=== PATIENT | male | born 1955 | race Caucasian/White ===

== ENCOUNTER 2016-12-12 01:48 | Inpatient (IN) ==
[2016-12-12 03:03] LABS: MANUAL DIFF NEEDED? NO
[2016-12-12 03:04] LABS: URINE CULTURE NEEDED? NO; URINE MICRO REVIEW NEEDED? NO; URINE SOURCE CLEAN CATCH
[2016-12-12 03:05] LABS: BASO% 0.5 % (0.0-0.8); EOS# 0.22 X1000 (0.0-0.7); EOS% 2.2 % (0.0-10.0); HEMATOCRIT 42.5 % (42.0-52.0); HEMOGLOBIN 14.3 g/dL (14.0-18.0); IMM GRAN# 0.04 X1000 (0.0-0.04); IMM GRAN% 0.4 % (0.0-0.5); LYMPH# 1.34 X1000 (1.2-3.4); LYMPH% 13.2 % (20.5-51.1); MCHC 33.6 g/dL (33-37); MCV 89.3 FL (81-99); MONO# 0.94 X1000 (0.11-0.59); MONO% 9.3 % (1.7-9.3); MPV 11.6 FL (7.4-10.4); NEUT% 74.4 % (42.2-75.2); PLT 318 X1000 (130-400); RBC 4.76 XMIL (4.7-6.1)
[2016-12-12 03:08] LABS: BILIRUBIN URINE NEGATIVE (NEGATIVE); BLOOD URINE NEGATIVE (NEGATIVE); COLOR YELLOW; GLUCOSE URINE NEGATIVE (NEGATIVE); LEUKOCYTES URINE NEGATIVE (NEGATIVE); NITRITE URINE NEGATIVE (NEGATIVE); PROTEIN URINE TRACE mg/dL (NEGATIVE); SP GRAVITY URINE 1.028; TURBIDITY URINE CLEAR (CLEAR); UROBILINOGEN URINE NORMAL (NORMAL)
[2016-12-12 03:09] LABS: UR EPITHELIAL CELLS <10 /HPF (<10); URINE BACTERIA NEGATIVE /HPF; URINE RBC <10 /HPF (<10); URINE WBC <10 /HPF (<10)
[2016-12-12 03:27] LABS: AGAP 15; ALBUMIN 4.1 g/dL (3.5-5.0); ALKALINE PHOSPHATASE 77 U/L (32-122); AMYLASE 34 U/L (20-200); BUN 19 mg/dL (8-22); CALCIUM 9.3 mg/dL (8.8-10.2); CHLORIDE 101 mmol/L (98-107); COSMO 286; GOT 25 U/L (10-34); GPT 24 U/L (10-44); POTASSIUM 4.2 mmol/L (3.5-5.1); SODIUM 141 mmol/L (136-145); TCO2 25 mmol/L (25-35); TOTAL BILIRUBIN 0.59 mg/dL (0.20-1.00); TOTAL PROTEIN 8.1 g/dL (6.3-8.3)
[2016-12-12] MEDS ORDERED: NS 1,000 ML IV SCH (05:20)
[2016-12-12] MEDS ORDERED: ZOFRAN IV ONE (05:21)
--- NOTE | 2016-12-12 05:24 | PROVIDER DOCUMENTATION ---
This chart was entered by Rick Earl Scribe, acting as scribe for Dirk Patel MD. HPI-Abdominal Pain/GI Problem - General Chief Complaint: Abdominal Pain Stated Complaint: ABD PAIN, VOMITING Time Seen by Provider: 12/12/16 02:27 Source: patient Allergies/Adverse Reactions: Patient Allergies Allergy/AdvReac Type Severity Reaction Status Date / Time No Known Allergies Allergy Verified 12/12/16 02:27 Home Medications: Home Medication List Medication Instructions Recorded Confirmed Last Taken Type Albuterol Sulfate [Proair Hfa] 2 puff INH PRN PRN 12/12/16 12/12/16 12/11/16 History Bisoprolol [Zebeta] 10 mg PO DAILY 12/12/16 12/12/16 12/11/16 History Cetirizine HCl [Zyrtec] 10 mg PO DAILY 12/12/16 12/12/16 12/11/16 History Fluticasone Propionate 2 spray KIARRA DAILY 12/12/16 12/12/16 12/11/16 History Gabapentin 100 mg PO DAILY 12/12/16 12/12/16 12/11/16 History Meloxicam 15 mg PO Q4-8H PRN PRN 12/12/16 12/12/16 12/11/16 History Montelukast [Singulair] 10 mg PO DAILY 12/12/16 12/12/16 12/11/16 History Omeprazole [Omeprazole] 20 mg PO DAILY 12/12/16 12/12/16 12/11/16 History SIMVAstatin [Zocor] 40 mg PO QHS 12/12/16 12/12/16 12/11/16 History - History of Present Illness-ABD Nature of Presenting Problems: Pt is a 61 yom who presents to ER with CC of 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 Pt reports that he has not felt good x4 days and vomited last night and had 2 episodes of diarrhea. Pt describes pain as a burning sensation in his stomach. Abdominal Pain Onset Location: reports: other (superumbilical tenderness) Pain Radiation: reports: no radiation Quality of Pain: reports: burning Severity in ED: reports: mild, moderate Onset/Duration: reports: 1-3 hours ago Timing: reports: intermittent Activities at Onset: reports: sleep Associated Symptoms: reports: diarrhea, nausea, vomiting. denies: anxiety, arm pain, back/neck pain, chest pain, constipation, cough, diaphoresis, dizziness, EENT symptoms, fatigue, fever/chills, genitourinary problems, headaches, heartburn, joint pain, loss of appetite, malaise, muscle aches, sinus congestion /drainage, rash, seizure, shortness of breath, sensory/motor loss, pain with inspiration, swelling/mass in abdomen, syncope, weakness, trouble walking Last BM: last night Dark Stools Present?: reports: none noticed Rectal Bleeding: reports: none # of Diarrhea Episodes: 2 Rectal Pain: reports: none Emesis Description: reports: none Review of Systems - Adult - REVIEW OF SYSTEMS - ADULT Constitutional: denies: chills, fever, fatique, night sweats, weight gain, weight loss Eyes: reports: no symptoms reported Ears, Nose, Mouth & Throat: reports: no symptoms reported Cardiovascular: reports: no symptoms reported Respiratory: reports: no symptoms reported Gastrointestinal: reports: abdominal pain, diarrhea, nausea, vomiting. denies: hematemesis, constipation, difficulty swallowing, frequent heartburn, poor appetite, rectal bleeding Genitourinary: denies: dysuria, discharge, frequency, flank pain, frequent UTI's , hematuria, hesitency, incontinence, urinary retention, urgency Musculoskeletal: reports: no symptoms reported Integumentary: reports: no symptoms reported Neurological: reports: no symptoms reported Psychiatric: reports: no symptoms reported Endocrine: reports: no symptoms reported Hematologic/Lymphatic: reports: no symptoms reported Allergic/Immunologic: reports: no symptoms reported All Other Systems: Reviewed and Negative Past History - Adult - PAST MEDICAL HISTORY-ADULT Review of Records: reports: Nursing Assessment Review, Medications Reviewed - IMMUNIZATION STATUS Childhood Immunizations: See Nurse Assessment Flu Vaccine: See Nurse Assessment Physical Exam-General - PHYSICAL EXAM-ADULT Initial Vital Signs Reviewed: Yes - CONSTITUTIONAL General Appearance: appears well, alert, mild distress, obese. negative: no apparent distress - HEAD, EARS, NOSE, MOUTH & THROAT HENMT: normocephalic/atraumatic, moist mucous membranes, normal ENT inspection, TMs normal, pharynx normal. negative: pharyngeal erythema, tonsillar exudate, TM abnormal, TM obscurred by cerumen, frontal tenderness, maxillary tenderness - NECK Neck: non-tender, full range of motion, supple, normal inspection. negative: C- spine tenderness, limited range of motion, lymphadenopathy - RESPIRATORY Respiratory: chest non-tender, lungs clear, normal breath sounds, no pleuratic chest pain, no respiratory distress, no accessory muscle use. negative: wheezing - CARDIOVASCULAR Cardiovascular: normal peripheral pulses, regular rate, rhythm. negative: bradycardia, tachycardia, irregularly irregular - GASTROINTESTINAL (ABDOMEN) Abdominal Exam: soft, no organomegaly, no pulsatile mass, abnormal bowel sounds (markedly diminshed), tenderness (superumbilical). negative: normal bowel sounds, non tender - MUSCULOSKELETAL Back Exam: normal inspection, no CVA tenderness, no vertebral tenderness. negative: CVA tenderness, decreased range of motion, ecchymosis, muscle spasm, swelling, vertebral tenderness Extremity: normal range of motion, non-tender, normal gait, normal inspection, no pedal edema, no calf tenderness, normal capillary refill. negative: deformity, erythema, inflammation, pedal edema, swelling, tenderness - SKIN Integumentary: normal color, normal turgor, warm/dry. negative: abrasion(s), diaphoresis, ecchymosis, erythema, laceration(s), swelling, tenderness, warm - NEUROLOGIC Neurologic: surface boss II-XII nml as tested, grossly normal, no motor/sensory deficits . negative: facial droop, focal weakness, motor weakness, sensory deficit - PSYCHIATRIC Psych/Mental Status: normal mood/affect, normal thought content, normal thought process, oriented x 3 Progress - PLAN OF CARE/RESULTS Progress/Plan/Lab Results: Vital Signs - 8 hr 12/12/16 01:53 Temperature 97.6 F Pulse Rate 76 Respiratory Rate 18 Blood Pressure 125/80 O2 Sat by Pulse Oximetry 99 Result Diagrams: 12/12/16 02:10 12/12/16 02:10 - CT/MRI 1 MRI Study: Abdomen, Pelvis (Early sbo) Departure - Departure Time of Disposition Decision: 05:23 DIAGNOSIS: Small bowel obstruction Disposition: ADMITTED INPATIENT 09 Certified Medical Emergency: Emergent Condition: Good Referrals and Follow-Ups: Dougie Tucker MD [Primary Care Provider] - This chart was documented by the indicated scribe, (Rick Earl Scribe) and accurately reflects the services I performed and decisions made by me, Dirk Patel MD, as attested by the provider's signature.
--- NOTE | 2016-12-12 06:54 | HISTORY AND PHYSICAL ---
PRIMARY CARE PHYSICIAN: Dr. Dougie Tucker. CHIEF COMPLAINT: Abdominal pain. HISTORY OF PRESENTING ILLNESS: This is a 61-year-old male with a history of hypertension who had presented to the emergency department with a 1-day history of having abdominal pain. He described the pain as sharp and stabbing, and was not subsiding. He had associated symptoms of nausea and vomiting. The patient states these symptoms were worsening. Subsequently, he had come to the emergency department. In the ER, he was evaluated and due to his presenting symptoms, it was thought that he would need hospitalization for further management. The patient had imaging done which did show the possibility of an early small bowel obstruction. At the time of my examination, he had, however, denied any headache, fever, chills, chest pain, shortness of breath, hemoptysis, melena, or weight changes. PAST MEDICAL HISTORY: Includes hypertension. PAST SURGICAL HISTORY: Hernia repair, right ankle fusion. ALLERGIES: No known drug allergies. CURRENT MEDICATIONS: As listed in the MAR. SOCIAL HISTORY: He denies any history of smoking, alcohol, or illicit drug use. FAMILY HISTORY: No history of coronary artery disease. REVIEW OF SYSTEMS: Twelve point review of systems as listed as in the HPI. Other systems negative. PHYSICAL EXAMINATION: GENERAL: Cooperative, friendly male. He is resting more comfortably now. VITAL SIGNS: Temperature 97.6 degrees, pulse 76, respirations 18, blood pressure 125/80, he is saturating 99%. HEENT: Atraumatic, normocephalic. Extraocular movements intact. PERRLA. NECK: No masses. CHEST: Clear to auscultation. CARDIOVASCULAR: Regular rate and rhythm. ABDOMEN: Soft. Diffuse tenderness. EXTREMITIES: No edema. NEUROLOGIC: He is awake, alert, oriented x3. : No bladder distention. SKIN: Warm. LABORATORIES AND STUDIES: WBCs 10.12, hemoglobin 14.3, hematocrit 42.5, platelets 318,000. Sodium 141, potassium 4.2, chloride 101, CO2 is 25, BUN is 19, creatinine is 1.1, glucose is 141. ASSESSMENT: A 61-year-old male with a history of hypertension who had presented to the emergency department with a 1-day history of having abdominal pain. He had imaging done which did show a small bowel obstruction. He will need hospitalization for further management. 1. Suspected small-bowel obstruction. 2. Hypertension. PLAN: 1. We will admit patient to the medical floor. 2. Keep patient NPO, give him IV fluids, antiemetics, and adequate pain control. 3. We will consult his senior analyst developer. 4. We will monitor blood pressure closely. 5. We will put patient on DVT prophylaxis with SCDs. 6. We will continue to follow and reassess. cc: MD Dougie Rodgers MD
[2016-12-12] MEDS ORDERED: MORPHINE IV PRN (07:32)
[2016-12-12] MEDS ORDERED: ZOFRAN IV PRN (07:32)
[2016-12-12] MEDS: NS 1,000 ML IV SCH ×3 (08:02→23:45)
--- NOTE | 2016-12-12 11:31 | Diag Imaging Result Document ---
PROCEDURE NAME: CT ABD/PELVIS W/ IV CONT ONLY - 12/12/2016 CT ABDOMEN PELVIS WITH IV CONTRAST ONLY: TECHNIQUE: Exam performed with intravenous contrast only per request of the referring provider. A dose reduction protocol was used. No comparison exam. FINDINGS: The visualized lung bases appear clear. There is mild retrocrural adenopathy. There are nonspecific small retroperitoneal lymph nodes. There are calcified granulomas in the liver and spleen from old granulomatous disease. There are no other substantial abnormalities of the liver, spleen, adrenal glands, or pancreas identified. There are no calcified gallstones or pericholecystic inflammation identified. The bilateral kidneys enhance homogeneously. There is mild cortical scarring at the right kidney. There is no hydronephrosis. There are lumbar spine degenerative changes noted. The stomach is distended with retained fluid. There is retained fluid in small bowel, some of which appears to have mildly thickened [place]. There is mild distention of proximal small bowel. There is no discrete small-bowel obstructing lesion identified. There is a small fat-containing umbilical hernia but there is no bowel-containing hernia seen. The appendix is unremarkable. There is no abscess identified. There is no free air. There is a small amount of free fluid in the pelvis. IMPRESSION: 1. Distended stomach with retained fluid. Retained fluid in small bowel. Mild distention of proximal small bowel. These findings may relate to gastroenteritis. Early small-bowel obstruction is not excluded, but there is no discrete obstructing lesion identified. 2. Unremarkable appendix. 3. Small amount of free fluid in pelvis. No free air. No abscess. 4. Mild retrocrural adenopathy A Scale Computing physician provided preliminary results at 5:02 a.m. on 12/12/2016.
[2016-12-12] MEDS: ZEBETA PO SCH (11:38)
[2016-12-12] MEDS ORDERED: BLISTEX MEDICATED BERRY LIP BALM TOP PRN (11:39)
[2016-12-12] MEDS: PROTONIX IV SCH ×2 (11:49→23:00)
[2016-12-12] MEDS: SODIUM CHLORIDE 0.9% INJ SCH ×2 (11:49→21:28)
[2016-12-12] MEDS: FLONASE NAS SCH (11:49)
--- NOTE | 2016-12-12 11:58 | PROGRESS NOTE ---
DATE: 12/12/2016 SUBJECTIVE: The patient has not had a bowel movement since Tuesday. This is Tuesday. He had diarrhea then. Was put in earlier today by the hospitalist for small bowel obstruction. He says he is feeling a little bit better right now. OBJECTIVE: Vital Signs: Blood pressure of 121/81, respirations 20, pulse 73, temperature 98.4 degrees Fahrenheit. HEENT: Normocephalic. EOMs intact. PERRLA. Throat clear. Lungs: Clear to auscultation and percussion without rhonchi, rales, or wheezes. Heart: Regular rate and rhythm without murmurs, gallops, or friction rubs. Abdomen: Somewhat distended with decreased bowel sounds. Neurological: Examination intact grossly. Laboratory Data: White count is 10,120, hemoglobin 14.3. Urinalysis is essentially normal. Chemistry profile is essentially normal. ASSESSMENT: Small bowel obstruction. PLAN: Continue NPO and have consulted gastroenterology. cc: MD Dougie Colin Jr, MD
--- NOTE | 2016-12-12 17:51 | CONSULTATION ---
DATE OF CONSULTATION: 12/12/2016 REFERRING PHYSICIAN: Dr. Dougie Tucker PRIMARY DONATION SPECIALIST: Oscar Lynn MD REASON FOR CONSULTATION: Abdominal pain and constipation. HISTORY OF PRESENT ILLNESS: Mr. Dalton is a 61-year-old male who was admitted to the hospital on 12/12/2016 with 3 days of worsening abdominal pain. Per the patient, he had complains of periumbilical pain, bloating, nausea, decreased p.o. intake, vomiting. Prior to that, he was having diarrhea. He has history of intermittent constipation. In the ER he was evaluated and underwent imaging which showed evidence of constipation. He had a history of prior intermittent constipation and his last colonoscopy was [address] Lynn which he describes as normal and he does not recall any h/o polyps at that time. He denies any vomiting blood or passing blood in the stools or melena. PAST MEDICAL HISTORY: Hypertension. PAST SURGICAL HISTORY: Hernia repair on the right side two years ago. Right ankle fusion. ALLERGIES: No known drug allergies. CURRENT MEDICATIONS IN THE HOSPITAL: Bisoprolol, dimethicone/benzoin, fluticasone nasal spray daily, morphine, IV fluids, Zofran Protonix IV b.i.d., MiraLAX twice daily, soapsuds enema given twice now. REVIEW OF SYSTEMS: Denies any current fevers, rigors, chills, chest pain, shortness of breath, dyspnea at rest. Denies any genitourinary or neurologic complaints. Denies history of rheumatoid arthritis. Denies any history of use of any major NSAIDs. Denies any history of vomiting blood or passing blood in the stools. PHYSICAL EXAMINATION: Vital signs: Temperature 98.4 degrees, pulse rate of 73 , respiratory rate 20, blood pressure of 121/81, saturating 97% on room air. Body weight of 240 pounds, BMI of 33.5 kg. General: Obese, lying in bed, in no acute distress. HEENT: No pallor, no icterus. Pupils equal, react to light. Neck: Supple. Chest: Decreased breath sounds. Cardiovascular: Regular rhythm. No murmur. Abdomen: Mild obese, Discomfort in the periumbilical region with no rebound or guarding. Bowel sounds are present. No hepatosplenomegaly. Extremities: No cyanosis, clubbing, edema. Neurologic: Alert, awake, oriented. LABORATORY: Hemoglobin and hematocrit is 14.3 and 42.5, white count of 10.1, platelet count of 318,000, MCV of 89.3. Sodium 140, potassium 4.2, chloride 101, bicarb 25, anion gap 15, BUN of 19, creatinine 1.1, glucose 141, calcium 9.3, total bilirubin is 0.59, AST 25, ALT 24, alkaline phosphatase 77, total protein 8.1, albumin of 4.1, amylase of 34. Urinalysis is trace protein. IMAGING: CT scan of the abdomen and pelvis done on 12/12/2016 showed: 1. Distended stomach with retained fluid in the small bowel. Mild distention of the proximal small bowel. These findings may relate to gastroenteritis, early small- bowel obstruction is not excluded. 2. Unremarkable appendix. 3. Small amount of free fluid in the pelvis. No free air. No abscess. 4. Mild retrocrural adenopathy. 5. Small fat-containing umbilical hernia, but there is no bowel-containing hernia seen. Bilateral kidneys enhance homogeneously. Lumbar spine degenerate changes noted. Calcified granulomata noted in the liver and spleen from old granulomatous disease. The visualized lung bases appear clear. IMPRESSION AND PLAN: 1. Constipation with no bowel movement for the last 3 days and prior history of intermittent constipation. Admitted with abdominal bloating, nausea, decreased p.o. intake and computed tomography scan showing evidence of partial small-bowel obstruction and fluid retention in the stomach and small bowel. 2. History of right-sided inguinal hernia repair 2 years ago. 3. Obesity. 4. Arthritis. Taking meloxicam as needed. 5. Hypertension. 6. Reflux disease, on Prilosec. 7. Hyperlipidemia, on Zocor at home. RECOMMENDATIONS: We will hold nonsteroidal antiinflammatory drugs for now. We will keep the patient on proton pump inhibitors twice daily. We will keep him on clear liquid diet today. The patient had 3 large bowel movements after 2 soapsuds enemas. We will start on MiraLAX twice daily and evaluate the response. Once he is emptying his bowels better, then he can hopefully be prepared for esophagogastroduodenoscopy and colonoscopy with Dr. Lynn. In the interim, we will continue to treat him with IV fluids and IV antiemetics, IV pain control. Dr. Lynn will be coming back tomorrow and will resume the care of the patient. The above plan of care discussed with the patient and family at bedside and all questions answered. cc: MD Dougie Lambert MD MTDD
[2016-12-12] MEDS: MIRALAX PO SCH (21:28)
[2016-12-13 06:25] LABS: MANUAL DIFF NEEDED? NO
[2016-12-13 06:40] LABS: BASO% 0.6 % (0.0-0.8); EOS# 0.54 X1000 (0.0-0.7); EOS% 8.4 % (0.0-10.0); HEMATOCRIT 35.3 % (42.0-52.0); HEMOGLOBIN 11.8 g/dL (14.0-18.0); IMM GRAN# 0.04 X1000 (0.0-0.04); IMM GRAN% 0.6 % (0.0-0.5); LYMPH# 1.65 X1000 (1.2-3.4); LYMPH% 25.7 % (20.5-51.1); MCH 30.4 PG (27-31); MCHC 33.4 g/dL (33-37); MPV 11.1 FL (7.4-10.4); NEUT% 50.7 % (42.2-75.2); PLT 245 X1000 (130-400); RBC 3.88 XMIL (4.7-6.1)
[2016-12-13 06:49] LABS: AGAP 12; BUN 17 mg/dL (8-22); CHLORIDE 106 mmol/L (98-107); COSMO 284; SODIUM 142 mmol/L (136-145); TCO2 24 mmol/L (25-35)
[2016-12-13] MEDS: FLONASE NAS SCH ×2 (07:42→09:09)
[2016-12-13] MEDS: NS 1,000 ML IV SCH ×2 (07:51→19:30)
--- NOTE | 2016-12-13 08:36 | Diag Imaging Result Document ---
PROCEDURE NAME: ABDOMEN FLAT/UPRIGHT - 12/13/2016 FLAT AND UPRIGHT ABDOMEN, THREE VIEWS: COMPARISON: 12/22/2015. FINDINGS: There are air distended loops of bowel with air fluid levels in the upright abdomen. No organomegaly. Mild scoliosis with degenerative spine changes. There are several pelvic calcifications consistent with phleboliths. Air is within the colon. IMPRESSION: Findings may represent a partial distal small bowel obstruction. Follow-up film is recommended.
[2016-12-13] MEDS: MIRALAX PO SCH ×2 (09:09→20:54)
[2016-12-13] MEDS: ZEBETA PO SCH (09:09)
--- NOTE | 2016-12-13 17:38 | PROGRESS NOTE ---
DATE: 12/13/2016 SUBJECTIVE: Patient is stable. Abdomen is fairly soft. He has been having some gas during the latter part of the day. Had a liquid bowel movement, small, this morning but has not had any during the day. No nausea or vomiting. OBJECTIVE: Vital signs: Afebrile, pulse 64, blood pressure 102/64, O2 saturation on room air 99%. CV: RRR. Lungs: CTA. Abdomen: Soft. Active bowel sounds. No pinpoint tenderness. Mild distention. Extremities: No edema. No calf tenderness or cords. Neurologic: Cranial nerves 2 through 12 are intact. Nonfocal. LABS: Show a white count of 6.4, hemoglobin 11.8, platelets 245,000, neutrophils 50, lymphocytes 25, monocytes 14. Sodium 142, potassium 4.0, chloride 106, CO2 24, BUN 17, creatinine 0.9, glucose 92, calcium 8.0. Flat and upright of the abdomen this morning continues to show partial small bowel obstruction distal small bowel. ASSESSMENT: 1. Small bowel obstruction. 2. Small fat containing umbilical hernia. 3. Obesity. 4. History right inguinal hernia repair 2 years ago. 5. Hypertension. 6. Osteoarthritis. 7. Gastroesophageal reflux disease. 8. Hyperlipidemia. PLAN: Continue MiraLAX as per Dr. Barraza. Dr. 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 Continue bowel rest, home medications. We will repeat a KUB tomorrow. Continue IVF. cc: Dougie Tucker MD
[2016-12-13] MEDS: PROTONIX IV SCH ×2 (20:52→20:54)
--- NOTE | 2016-12-14 08:32 | Diag Imaging Result Document ---
PROCEDURE NAME: KUB ABDOMEN - 12/14/2016 ABDOMEN: COMPARISON: 12/13/2016. FINDINGS: There is a single loop of small bowel measuring about 3 cm. This is probably within normal limits. There is gas throughout the colon. No obvious free air. IMPRESSION: Nonspecific exam.
[2016-12-14] MEDS: MIRALAX PO SCH ×2 (09:18→21:33)
[2016-12-14] MEDS: ZEBETA PO SCH (09:26)
[2016-12-14] MEDS: SODIUM CHLORIDE 0.9% INJ SCH ×2 (09:27→21:33)
[2016-12-14] MEDS: PROTONIX IV SCH ×2 (09:27→21:33)
[2016-12-14] MEDS: NS 1,000 ML IV SCH ×3 (10:21→21:33)
[2016-12-14] MEDS: FLONASE NAS SCH (10:22)
[2016-12-14] MEDS ORDERED: GOLYTELY PO ONE (14:00)
--- NOTE | 2016-12-14 14:35 | PROGRESS NOTE ---
DATE: 12/14/2016 SUBJECTIVE: Patient overall doing better. He has had some slow improvement with enemas and MiraLAX. Some loose, small bowel movements. OBJECTIVE: Vital Signs: Afebrile, pulse 62, respirations 20, blood pressure 110/69. CV: RRR. Lungs: CTA. Abdomen: Soft, active bowel sounds. Mild distention. Extremities: No edema. DIAGNOSTIC STUDIES: KUB reveals a 3 cm small bowel loop, read as possibly being within normal limits per Dr. Aguirre, Radiologist. Gas throughout the colon. He is passing gas well. ASSESSMENT: 1. Partial small bowel obstruction, improving. 2. History of right inguinal hernia repair 2 years ago. 3. Small fat containing umbilical hernia. 4. Obesity. 5. Hypertension. 6. Osteoarthritis. 7. Gastroesophageal reflux disease. 8. Hyperlipidemia. PLAN: Continue MiraLAX. Will stop the enemas. Dr. Lynn is seeing the patient and consideration is being given to going ahead and doing his colonoscopy while he was in the hospital. I will defer that to Dr. Lynn discretion. cc: Dougie Tucker MD
--- NOTE | 2016-12-14 18:07 | PROGRESS NOTE ---
DATE: 12/14/2016 SUBJECTIVE: Patient's pain has improved. He has had some small loose stools. Abdominal x-ray today showed a single loop of small bowel measuring about 3 cm. Gas throughout the colon. No obvious free air. OBJECTIVE: Vital signs: Temperature 97.7 degrees, pulse 61, respirations 18, blood pressure 123/85. Generally: Patient is awake, alert, no acute distress. HEENT: Normocephalic, atraumatic. Pupils equal, round, reactive to light. Cardiovascular: Regular rate and rhythm. Respiratory: Lung sounds clear bilaterally. Abdomen: Soft, obese, mild distention, positive bowel sounds. LABORATORY: Hematology from 12/13/2016 WBC 6.41, hemoglobin 11.8, hematocrit 35.3, MCV 91.0. Chemistry. Sodium 142, potassium 4.0, chloride 106, CO2 24, BUN 17, creatinine 0.9. ASSESSMENT AND PLAN: 1. Constipation. 2. Questionable partial small bowel obstruction. 3. Obesity. 4. Hypertension. 5. Osteoarthritis. 6. Gastroesophageal reflux disease. 7. Hyperlipidemia. PLAN: Continue on supportive care. Continue current medications. We will go ahead and plan for a colonoscopy on morning. We will start prepping him now and have him drink the colon prep slowly. Further plans to be made according to findings. I have discussed the colonoscopy procedure with the patient and his and they voiced understanding and wished to proceed. Further plans to be made according to findings. I have discussed this case with Dr. Lynn. Thank you for this consult. Dictated by RANDY Perera for Oscar Lynn MD cc: RANDY Ogden MD Stephen W. Harbin, MD
[2016-12-15] MEDS: SODIUM CHLORIDE 0.9% INJ SCH ×2 (08:24→21:04)
[2016-12-15] MEDS: PROTONIX IV SCH ×2 (08:24→21:04)
[2016-12-15] MEDS: FLONASE NAS SCH (08:25)
[2016-12-15] MEDS: MIRALAX PO SCH ×2 (08:25→21:05)
[2016-12-15] MEDS: ZEBETA PO SCH (08:28)
[2016-12-15] MEDS: NS 1,000 ML IV SCH ×2 (08:34→18:21)
--- NOTE | 2016-12-15 14:11 | PROGRESS NOTE ---
DATE: 12/15/2016 SUBJECTIVE: Patient is stable. He is having some loose bowel movements, as he is undergoing preparation for colonoscopy in the morning. No nausea or vomiting. OBJECTIVE: Vital Signs: Afebrile, pulse 59, blood pressure 113/71, respirations 20, O2 saturation 99% to 100% on room air. Cardiovascular: RRR. Lungs: CTA. Abdomen: Soft. Active bowel sounds. No point tenderness. No distention today. Extremities: No edema. ASSESSMENT: 1. Partial small-bowel obstruction, resolved. 2. History of right inguinal hernia repair. 3. Small fat-containing umbilical hernia. 4. Obesity. 5. Hypertension. 6. Osteoarthritis. 7. Gastroesophageal reflux disease. 8. Hyperlipidemia. PLAN: Continue preparation for colonoscopy per Dr. Lynn of in the morning. We will repeat KUB this afternoon. cc: Dougie Tucker MD
--- NOTE | 2016-12-15 14:35 | Diag Imaging Result Document ---
PROCEDURE NAME: KUB ABDOMEN - 12/15/2016 ABDOMEN, TWO VIEWS: COMPARISON: 12/14/2016. FINDINGS: There is air throughout the small bowel loops and colon. The small bowel loops are slightly less distended than on the prior exam. No organomegaly. There is mild scoliosis with degenerative spine changes. There are several pelvic phleboliths. IMPRESSION: Interval improvement with decreased small bowel distention.
[2016-12-16] MEDS ORDERED: DIPRIVAN 1% ONE (08:29)
[2016-12-16] MEDS ORDERED: VENTOLIN HFA INH PRN (08:34)
[2016-12-16 08:58] VITALS: BP 144/68
[2016-12-16] MEDS ORDERED: ZYRTEC PO SCH (09:00)
[2016-12-16] MEDS ORDERED: SINGULAIR PO SCH (09:00)
[2016-12-16] MEDS ORDERED: NEURONTIN PO SCH (09:00)
[2016-12-16] MEDS ORDERED: PRILOSEC PO SCH (09:00)
[2016-12-16] MEDS: ZEBETA PO SCH (09:28)
[2016-12-16] MEDS: PROTONIX IV SCH (09:28)
[2016-12-16] MEDS: FLONASE NAS SCH (09:48)
[2016-12-16] MEDS: MIRALAX PO SCH (09:48)
[2016-12-16] MEDS ORDERED: VERSED ONE (09:51)
[2016-12-16] MEDS ORDERED: XYLOCAINE-MPF 2% ONE (10:10)
[2016-12-16] MEDS ORDERED: LR 1,000 ML ONE (10:10)
[2016-12-16] MEDS ORDERED: ANESTHESIA PB SET 88 IN 5742 ONE (10:10)
--- NOTE | 2016-12-16 14:59 | PROGRESS NOTE ---
DATE: 12/16/2016 SUBJECTIVE: Patient has had colonoscopy this morning per Dr. Lisa that apparently showed a couple small polyps, but otherwise no causative constipation/small bowel obstruction. Patient feeling better. He ate some lunch and tolerated it thus far well. OBJECTIVE: Vital Signs: Afebrile, pulse 60, respirations 20, blood pressure 144/68, O2 saturation on room air 96% to 99%. CV: RRR without murmur. Lungs: CTA. Abdomen: Soft. Active bowel sounds. No pinpoint tenderness. Extremities: No edema. Calf tenderness or cords. X-RAYS: X-ray of the abdomen reveals improvement in small bowel dilation. Air is noted throughout the colon. ASSESSMENT: 1. Small bowel obstruction, resolved. 2. History of right inguinal hernia repair, remote. 3. Small fat-containing umbilical hernia. 4. Obesity. 5. Hypertension. 6. Osteoarthritis. 7. Gastroesophageal reflux disease. 8. Hyperlipidemia. PLAN: We will discharge the patient back home on his home medications, except for the Mobic. He will leave that off, and will add MiraLAX daily to his regimen. Follow up with me in 7-10 days. He will need a colonoscopy again in [address] Lynn's recommendations. cc: Dougie Tucker MD
--- NOTE | 2016-12-16 15:14 | OPERATIVE NOTE ---
PROCEDURE DATE: 12/16/2016 PROCEDURE: Colonoscopy. PREOPERATIVE DIAGNOSIS: Sudden change in his bowel habit, constipation/bowel obstruction. POSTOPERATIVE DIAGNOSIS: Colon polyps. Otherwise normal colonoscopy up to terminal ileum. MEDICATION USED: MAC as per Anesthesia. SCOPE: [employer] CF HQ [id number]. HISTORY: This 61-year-old gentleman was admitted to the hospital with abdominal pain, nausea, vomiting. Imaging studies had shown possible bowel obstruction. He has noticed sudden change in his bowel habit as well, getting constipated. Colonoscopy was done to rule out obstructive pathology or stricture. DESCRIPTION OF PROCEDURE: Informed consent was obtained from the patient. The procedure, risks, benefits, and alternatives were explained in layman's terms. He understood. All of his pertinent questions were answered. Patient was brought to the endoscopy unit and was premedicated as per Anesthesia. After adequate sedation, while he was lying in left lateral position, digital rectal exam was performed, which was normal. Scope was then gently introduced into the rectum and advanced under direct vision through the parts of colon, all the way up to the cecum. The cecum was identified by ileocecal valve and appendiceal orifice. The scope was then passed through the normal ileocecal valve into terminal ileum. About 8-10 cm of terminal ileum was examined, which was normal. The scope was then withdrawn back into the cecum, back through the parts of colon, all the way up the rectum, paying careful attention to details. Preparation was good. The visualized portion of the colon revealed a couple polyps in the sigmoid colon which was diminutive, sessile, smooth surface. It was ablated using monopolar wire. A few diminutive polyps were seen in the rectum as well. Again, they were sessile and diminutive size. There were also ablated using the hot wire. Retroflex view of rectum and the rest of the colon did not show any pathology such as stricture or stenosis. The scope was withdrawn. The patient tolerated the procedure well. No complications were noted. Patient was then transferred to the recovery area in a stable condition. IMPRESSION: Colon polyps. Otherwise normal colon up to terminal ileum. RECOMMENDATION: I would continue him on a high fiber, high residue diet and continue MiraLAX 17 g in a glass of water or juice p.o. b.i.d. Advised to follow up with me at the office after discharge. cc: MD Dougie Murillo MD
[2016-12-17] MEDS ORDERED: PRILOSEC PO SCH (09:00)
--- NOTE | 2016-12-26 18:40 | DISCHARGE SUMMARY ---
ADMISSION DATE: 12/12/2016 DISCHARGE DATE: 12/16/2016 DISCHARGE DIAGNOSES: 1. Small-bowel obstruction responded to conservative measures. 2. Small fat containing umbilical hernia. 3. Small colon polyps diminutive per colonoscopy. 4. Obesity. 5. History of right inguinal hernia repair 2 years ago. 6. Hypertension. 7. Osteoarthritis. 8. Gastroesophageal reflux disease. 9. Hyperlipidemia. CONSULTANTS: Dr. Dupont/Dr. Lynn. PROCEDURES: 1. CT abdomen and pelvis with IV contrast only revealed distended stomach with retained fluid in the small bowel. Mild distention of proximal small bowel. Early small bowel obstruction. Unremarkable appendix. Small amount of free fluid in the pelvis. Mild retrocrural adenopathy. 2. Colonoscopy revealing diminutive colon polyps. REASON FOR ADMISSION AND HOSPITAL COURSE: The patient is a 61-year-old white male followed in my medical practice. Primarily, he has a history of osteoarthritis. Patient came in with abdominal pain, bloating, distention, and nausea and vomiting. CT abdomen and pelvis revealed SBO. The patient was treated conservatively with bowel rest, IV fluids, pain control, PPI prophylaxis for peptic ulcer disease. Dr. Barraza was dictaphone mechanic for Dr. Lynn and saw him initially. Patient also received laxatives in the form of enemas, MiraLAX and Dulcolax. The patient responded over the next 3 days and began to pass gas and have small bowel movements. It had been 8 years since his last colonoscopy and with this abrupt change in his bowel habits Dr. Lynn came back into town and saw the patient and performed colonoscopy with small colon polyps found. Patient responded well to conservative measures and it was felt by 12/16 that he could be discharged home on a bland diet. DISCHARGE MEDICATIONS: 1. Albuterol 2 puffs q.4 hours p.r.n. wheezes and cough. 2. Gabapentin 100 mg p.o. daily. 3. Zebeta 10 mg p.o. daily. 4. Flonase 2 sprays to each nostril daily. 5. Omeprazole 20 mg p.o. daily. 6. Singulair 10 mg p.o. daily. 7. Zyrtec 10 mg p.o. daily. 8. Zocor 40 mg p.o. at bedtime. 9. MiraLAX 17 g in 8 ounces of water daily. FOLLOW UP: He will follow up in my office in 10-[address] Shane robin cc: Dougie Tucker MD
== END 2016-12-16 14:57 | disposition home or self-care (01) ==
LOC: ED 01:48 → SUATTDRO 06:23 → 3N 06:23
PROVIDERS: ADMIT Family Medicine; ATTEND Family Medicine
PROC: EN.HEAT (2016-12-16 07:58)